=== PATIENT | female | born 2000 | race Two or more races ===

== ENCOUNTER 2022-04-26 14:27 | Emergency (ER) | payer SELFPAY ==
[~2022-04-26] VITALS: Ht 165.1 cm; Wt 100.0 kg
[2022-04-26] MEDS ORDERED: dexamethasone sod phosphate 10mg/ml inj PO STA (15:01)
[2022-04-26] MEDS ORDERED: ipratropium/albuterol 3ml nebule NEB ONE (15:05)
[2022-04-26] MEDS ORDERED: acetaminophen 325mg tablet PO ONE (15:10)
[2022-04-26 16:15] VITALS: BP 105/67
--- NOTE | 2022-04-26 16:50 | NUR ---
I AGREE WITH THE GENERAL ASSESSMENT PERFORMED PER Nicole CHACKO LVN.
== END 2022-04-26 17:21 | disposition home or self-care (01) ==
LOC: ER 14:27
DX: J45.909 Unspecified asthma, uncomplicated (principal); Z91.041 Radiographic dye allergy status
CPT/HCPCS: 94640; 99283; J1100; 94760

== ENCOUNTER 2022-04-27 10:04 | Emergency (ER) | payer OTHER ==
[~2022-04-27] VITALS: Ht 165.1 cm; Wt 100.0 kg
[2022-04-27] MEDS ORDERED: normal saline 1000ML IV soln IVB ONE (10:30)
[2022-04-27] MEDS ORDERED: magnesium 2GM in 50ml NS 50 ML IV ONE (10:30)
[2022-04-27] MEDS ORDERED: albuterol 2.5 MG/3 ML nebule CONTNEB PRN (10:30)
[2022-04-27] MEDS ORDERED: methylPREDNISolone sod succ 125mg/2ml vial IV ONE (10:30)
[2022-04-27] MEDS ORDERED: acetaminophen 325mg tablet PO ONE (11:15)
[2022-04-27] MEDS ORDERED: ipratropium/albuterol 3ml nebule NEB ONE (13:03)
[2022-04-27 13:28] VITALS: BP 139/84
== END 2022-04-27 14:02 | disposition home or self-care (01) ==
LOC: ER 10:05
DX: J45.901 Unspecified asthma with (acute) exacerbation (principal); Z88.8 Allergy status to other drugs, medicaments and biological substances; Z91.041 Radiographic dye allergy status
CPT/HCPCS: 71045; 94644; 96365; 96366; 96375; 99285; J2930; J3475; J7030; 94640; 94760